=== PATIENT | female | born 1960 | race Caucasian/White ===

== ENCOUNTER 2018-06-02 16:32 | Emergency (ER) | payer SELFPAY ==
[~2018-06-02] VITALS: Ht 129.5 cm; Wt 55.8 kg
--- NOTE | 2018-06-02 16:45 | NUR ---
PT AMBULATED TO ER BED 10
--- NOTE | 2018-06-02 16:50 | NUR ---
PATIENT PRESENTS TO ED WITH COMPLAINTS OF LEFT EYE IRRITATION AND FACIAL DROOP. PATIENT STATES EYE IRRITATION STARTED ON THURSDAY AND FACIAL DROOPING STARTED YESTERDAY. NEGATIVE STRENGTH ASYMETRY. PATIENT REPORTS HEADACHE. DENIES N/V/D; SKIN IS PINK/WARM/DRY; AAOX4 WITH EVEN AND STEADY GAIT; LUNGS CLEAR BL; HR EVEN AND REGULAR; PT DENIES ANY FEVER, CP, SOB, OR COUGH AT THIS TIME; PATIENT STATES PAIN OF 5/10 AT THIS TIME; VSS; PATIENT POSITIONED FOR COMFORT; HOB ELEVATED; BEDRAILS UP X1; BED DOWN. ER MD MADE AWARE OF PT STATUS.
[2018-06-02 16:53] VITALS: BP 220/106
[2018-06-02] MEDS ORDERED: methylPREDNISolone SS 125 MG/2 ML VIAL IM ONE (16:55)
[2018-06-02] MEDS ORDERED: LORazepam 2 MG/ML VIAL IM ONE (16:55)
[2018-06-02 17:45] VITALS: BP 151/87
--- NOTE | 2018-06-02 17:45 | NUR ---
Patient discharged with v/s stable. Written and verbal after care instructions given and explained. Patient alert, oriented and verbalized understanding of instructions. Ambulatory with steady gait. All questions addressed prior to discharge. ID band removed. Patient advised to follow up with PMD. Rx of PREDNISONE AND ACYCLOVIR given. Patient educated on indication of medication including possible reaction and side effects. Opportunity to ask questions provided and answered.
== END 2018-06-02 17:45 | disposition home or self-care (01) ==
LOC: MED 16:32
DX: G51.0 Bell's palsy (principal)
CPT/HCPCS: 96372; 99284; J2060; J2930